=== PATIENT | female | born 1965 | race Caucasian/White ===

== ENCOUNTER 2016-06-21 14:52 | Emergency (ER) | payer BC ==
[2016-06-21] MEDS ORDERED: HYDROcodone/APAP 5-325MG 1 EACH TAB PO STA (15:51)
--- NOTE | 2016-06-21 15:53 | ED ---
General Adult HPI - General Chief complaint: Head Injury Stated complaint: head injury Time Seen by Provider: 06/21/16 15:13 Source: EMS, RN notes reviewed, old records reviewed Mode of arrival: EMS Limitations: no limitations - History of Present Illness Initial comments: This is a 50-year-old female the ER for evaluation headache headache head pain. Head trauma. Patient is on blood thinners, has no specific medical history, think severe concussion, mild headache with nausea. Vision did hit her head on a door and the car of [employer], no evidence of passing out, library became nervous for can touch concussion and called EMS. Prior L2 emergency room patient has no nausea vomiting. Is complaining of headache. - Related Data Home Medications Medication Instructions Recorded Confirmed FLUoxetine HCL [Fluoxetine HCl] 20 mg PO DAILY 10/07/15 06/21/16 Gabapentin [Gabapentin] 300 mg PO BID 10/07/15 06/21/16 Levothyroxine Sodium [Synthroid] 137 mg PO DAILY 10/07/15 06/21/16 Ibuprofen [Motrin] 800 mg PO TID PRN 06/21/16 06/21/16 Allergies Allergy/AdvReac Type Severity Reaction Status Date / Time sulfamethoxazole Allergy Rash/Hives Verified 06/21/16 15:40 [From Bactrim] trimethoprim [From Bactrim] Allergy Rash/Hives Verified 06/21/16 15:40 SULFURIC ACID Allergy Rash/Hives Uncoded 06/21/16 15:05 Review of Systems ROS Statement: Those systems with pertinent positive or pertinent negative responses have been documented in the HPI. ROS Other: All systems not noted in ROS Statement are negative. Past Medical History Past Medical History: Eye Disorder, Thyroid Disorder Additional Past Medical History / Comment(s): BILAT CATARACTS. SEASONAL ALLERGIES History of Any Multi-Drug Resistant Organisms: None Reported Past Surgical History: Section Past Anesthesia/Blood Transfusion Reactions: No Reported Reaction Past Psychological History: Anxiety, Depression Smoking Status: Never smoker Past Alcohol Use History: Occasional Past Drug Use History: None Reported - Past Family History Mother Family Medical History: Cancer General Exam Limitations: no limitations General appearance: alert, in no apparent distress Head exam: Present: normocephalic, normal inspection. Absent: atraumatic ( Hematoma left fourth) Eye exam: Present: normal appearance, PERRL, EOMI. Absent: scleral icterus, conjunctival injection, periorbital swelling ENT exam: Present: normal exam, mucous membranes moist Neck exam: Present: normal inspection. Absent: tenderness, meningismus, lymphadenopathy Respiratory exam: Present: normal lung sounds bilaterally. Absent: respiratory distress, wheezes, rales, rhonchi, stridor Cardiovascular Exam: Present: regular rate, normal rhythm, normal heart sounds. Absent: systolic murmur, diastolic murmur, rubs, gallop, clicks GI/Abdominal exam: Present: soft, normal bowel sounds. Absent: distended, tenderness, guarding, rebound, rigid Extremities exam: Present: normal inspection, full ROM, normal capillary refill. Absent: tenderness, pedal edema, joint swelling, calf tenderness Back exam: Present: normal inspection Neurological exam: Present: alert, oriented X3, CN II-XII intact Psychiatric exam: Present: normal affect, normal mood Skin exam: Present: warm, dry, intact, normal color. Absent: rash Course Vital Signs 06/21/16 14:59 Temperature 98.5 F Pulse Rate 68 Respiratory 18 Rate Blood Pressure 163/89 O2 Sat by Pulse 99 Oximetry - Reevaluation(s) Reevaluation #1: 06/21/16 15:52 Patient's symptoms are improved Medical Decision Making - Medical Decision Making 50. The ER with close head injury, scalp hematoma. Patient's pain is improved at this time can be discharged home to take Motrin and Tylenol for pain - Radiology Data Radiology results: report reviewed (CT brain negative for acute disease), image reviewed Disposition Clinical Impression: Contusion of scalp, Hematoma of scalp, Closed head injury Disposition: HOME SELF-CARE Condition: Good Instructions: Concussion (ED) Referrals: Wilbert David MD [Primary Care Provider] - 1-2 days
[2016-06-21] MEDS ORDERED: IBUPROFEN 800 MG TAB PO STA (16:00)
--- NOTE | 2016-06-21 17:01 | CT ---
EXAMINATION TYPE: CT brain wo con DATE OF EXAM: 06/21/2016 4:52 PM COMPARISON: NONE HISTORY: Left frontal injury with blurred vision. CT DLP: 1017.90 mGycm Automated exposure control for dose reduction was used. FINDINGS: There is no acute intracranial hemorrhage, mass effect, or midline shift identified. The ventricles and sulci are within normal limits in size. The globes are intact and the visualized sinuses are yaron ar. IMPRESSION: No acute intracranial hemorrhage, mass effect, or midline shift is seen.
[2016-06-21 17:11] VITALS: BP 165/73; PULSE 62; RESP 16; TEMP 97.7
== END 2016-06-21 17:30 | disposition home or self-care (01) ==
LOC: EC 14:52
DX: S00.03XA Contusion of scalp, initial encounter (principal); S09.90XA Unspecified injury of head, initial encounter; W22.8XXA Striking against or struck by other objects, initial encounter; Y92.241 Library as the place of occurrence of the external cause; Z79.899 Other long term (current) drug therapy; E07.9 Disorder of thyroid, unspecified; Z88.2 Allergy status to sulfonamides; Z88.8 Allergy status to other drugs, medicaments and biological substances; Z91.048 Other nonmedicinal substance allergy status; F41.9 Anxiety disorder, unspecified; F32.9 Major depressive disorder, single episode, unspecified
CPT/HCPCS: 70450; 99284

== ENCOUNTER → 2016-12-20 | Outpatient (CLI) | payer BC ==
--- NOTE | 2016-12-21 07:57 | MM ---
Reason for exam: clinical finding. Last mammogram was performed 2 years and 7 months ago. History: Taking hormonal contraceptives for 5 years beginning at age 43. Indicated problem(s): pain in both breasts. Physical Findings: Nurse did not find any significant physical abnormalities on exam. MG Diagnostic Mammo w CAD JUN Bilateral CC and MLO view(s) were taken. Prior study comparison: May 31, 2014, bilateral MG diagnostic mammo w CAD JUN. November 10, 2010, mammogram. There are scattered fibroglandular densities. Right upper outer quadrant focal asymmetry stable in comparison to 11/10/10 exam. These results were verbally communicated with the patient and result sheet given to the patient on 12/20/16. ASSESSMENT: Benign, BI-RAD 2 RECOMMENDATION: Routine screening mammogram of both breasts in 1 year. Manage on a clinical basis with regard to bilateral breast pain.
== END | disposition home or self-care (01) ==
LOC: RADMAMWWP 14:50
PROVIDERS: ATTEND Obstetrics & Gynecology
DX: N64.4 Mastodynia (principal)

== ENCOUNTER → 2018-05-19 | Outpatient (CLI) | payer BC ==
--- NOTE | 2018-05-19 22:53 | MR ---
EXAMINATION TYPE: MR shoulder RT wo con DATE OF EXAM: 05/19/2018 COMPARISON: NONE HISTORY: Right shoulder pain with limited range of motion for 1 year per patient. TECHNIQUE: Multiplanar, multisequence imaging of the right shoulder is performed without contrast. FINDINGS: Rotator Cuff: There is marked abnormal signal in distal supraspinatus and infraspinatus tendons. Ther e is focal tear articular surface with fluid cleft measuring 12 mm AP diameter parasagittal image for noted. A few roughly 1/4 anterior fibers of the distal supraspinatus tendon remain intact. Roughly 1 /3-1/2 posterior fibers distal infraspinatus tendon are felt intact. Subscapularis tendon is intact. Rotator cuff muscle bulk is preserved. Acromioclavicular Joint: There is mild to moderate capsular hypertrophy. There is moderate to severe narrowing. Distal acromion morphology is unremarkable. Underlying fat plane at the AC joint is efface d. Underlying impingement is suspected. Correlate clinically. Glenohumeral Joint: There is small to moderate size glenohumeral joint effusion. Moderate narrowing i s seen. No suspicious spurring is present. Labrum: The superior labrum shows increased signal and blunting consistent with degenerative tear. Biceps Tendon: The long head of biceps is in normal location within bicipital groove. Intracapsular p ortion near anchor shows thickening and possible slight intermediate signal. Bone marrow signal: Subchondral cystic change superolateral humeral head is present. Other: No additional significant abnormality is appreciated. IMPRESSION: 1. Tendinosis and significant partial tears of the distal supraspinatus and infraspinatus tendons. 2. Moderate to borderline severe AC and glenohumeral joint arthropathy. Correlate for underlying impi ngement.
== END ==
LOC: RADMRIMAIN 15:11
PROVIDERS: ATTEND Orthopaedic Surgery
DX: M19.011 Primary osteoarthritis, right shoulder (principal); M75.101 Unspecified rotator cuff tear or rupture of right shoulder, not specified as traumatic

== ENCOUNTER 2018-09-13 12:40 | Emergency (ER) | payer BC ==
[2018-09-13 12:49] VITALS: BP 141/67; PULSE 80; RESP 16; TEMP 98.8
[2018-09-13] MEDS ORDERED: DEXAMETHASONE SOD PHOSPHATE 10 MG/ML 1 ML VIAL IM STA (12:58)
--- NOTE | 2018-09-13 13:01 | ED ---
ENT HPI - General Chief complaint: ENT Stated complaint: SORE THROAT Time Seen by Provider: 09/13/18 12:50 Source: patient, RN notes reviewed Mode of arrival: ambulatory Limitations: no limitations - History of Present Illness Initial comments: 52-year-old female presents emergency Department chief complaint sore throat 3 days. Patient states is painful to swallow and she has multiple swollen lymph nodes that she's palpated. Patient states that she's had no prior surgeries on her throat including tonsils redness. Patient reports subjective fevers and chills. Patient denies nasal congestion, cough, runny nose, sinus pressure. Patient states that she is very painful to swallow at this time she has not been taking any medications. - Related Data Home Medications Medication Instructions Recorded Confirmed FLUoxetine HCL [Fluoxetine HCl] 20 mg PO DAILY 10/07/15 02/26/17 Gabapentin 300 mg PO BID 10/07/15 02/26/17 Levothyroxine Sodium [Synthroid] 137 mcg PO DAILY 10/07/15 02/26/17 Acetaminophen/Diphenhydramine 2 tab PO HS 02/21/17 02/26/17 [Tylenol PM 500-25mg] Ibuprofen [Motrin] 600 mg PO Q8HR PRN 02/21/17 02/26/17 Previous Rx's Medication Instructions Recorded Amoxicillin 500 mg PO Q8H #30 capsule 09/13/18 predniSONE 50 mg PO DAILY #3 tab 09/13/18 Allergies Allergy/AdvReac Type Severity Reaction Status Date / Time fentanyl Allergy Unknown Verified 09/13/18 12:45 sulfamethoxazole Allergy Rash/Hives Verified 09/13/18 12:45 [From Bactrim] trimethoprim [From Bactrim] Allergy Rash/Hives Verified 09/13/18 12:45 SULFURIC ACID Allergy Rash/Hives Uncoded 09/13/18 12:45 Review of Systems ROS Statement: Those systems with pertinent positive or pertinent negative responses have been documented in the HPI. ROS Other: All systems not noted in ROS Statement are negative. Past Medical History Past Medical History: Eye Disorder, Thyroid Disorder Additional Past Medical History / Comment(s): cataract lt eye. SEASONAL ALLERGIES History of Any Multi-Drug Resistant Organisms: None Reported Past Surgical History: Section Additional Past Surgical History / Comment(s): cataract rt eye with lens implant Past Anesthesia/Blood Transfusion Reactions: No Reported Reaction Past Psychological History: Anxiety, Depression Smoking Status: Never smoker - Past Family History Mother Family Medical History: Cancer General Exam Limitations: no limitations General appearance: alert, in no apparent distress Head exam: Present: atraumatic, normocephalic, normal inspection Eye exam: Present: normal appearance, PERRL, EOMI. Absent: scleral icterus, conjunctival injection, periorbital swelling ENT exam: Present: mucous membranes moist, TM's normal bilaterally. Absent: normal exam, normal oropharynx (Erythematous posterior pharynx with erythematous tonsils) Neck exam: Present: normal inspection, full ROM, lymphadenopathy. Absent: tenderness, meningismus Respiratory exam: Present: normal lung sounds bilaterally. Absent: respiratory distress, wheezes, rales, rhonchi, stridor Cardiovascular Exam: Present: regular rate, normal rhythm, normal heart sounds. Absent: systolic murmur, diastolic murmur, rubs, gallop, clicks Course Vital Signs 09/13/18 12:44 Temperature 98.8 F Pulse Rate 80 Respiratory 16 Rate Blood Pressure 141/67 O2 Sat by Pulse 97 Oximetry Medical Decision Making - Medical Decision Making 52-year-old female presented for sore throat. Patient has multiple swollen lymph nodes, erythema and swelling of her tonsils. Patient we treated for tonsillitis, suspect strep pharyngitis. Patient will be given Decadron emergency department and discharged on antibiotics. Disposition Clinical Impression: Acute tonsillitis, Pharyngitis Disposition: HOME SELF-CARE Condition: Stable Instructions (If sedation given, give patient instructions): Tonsillitis (ED) Additional Instructions: Please return to the Emergency Department if symptoms worsen or any other concerns. Prescriptions: Amoxicillin 500 mg PO Q8H #30 capsule predniSONE 50 mg PO DAILY #3 tab Is patient prescribed a controlled substance at d/c from ED?: No Referrals: Wilbert David MD [Primary Care Provider] - 1-2 days Time of Disposition: 13:01
== END 2018-09-13 13:42 | disposition home or self-care (01) ==
LOC: EC 12:40
DX: J03.90 Acute tonsillitis, unspecified (principal); E07.9 Disorder of thyroid, unspecified; F32.9 Major depressive disorder, single episode, unspecified; F41.9 Anxiety disorder, unspecified; Z88.2 Allergy status to sulfonamides; Z88.5 Allergy status to narcotic agent; Z91.048 Other nonmedicinal substance allergy status; Z79.890 Hormone replacement therapy; Z79.891 Long term (current) use of opiate analgesic; Z79.899 Other long term (current) drug therapy
CPT/HCPCS: 99282; 96372; J1100

== ENCOUNTER → 2018-10-14 | Outpatient (CLI) | payer BC ==
--- NOTE | 2018-10-16 10:10 | MM ---
Reason for exam: screening (asymptomatic). Last mammogram was performed 1 year and 10 months ago. History: Patient is postmenopausal. Benign excisional biopsy of the left breast, 2017. Took hormonal contraceptives for 5 years. Physical Findings: A clinical breast exam by your physician is recommended on an annual basis and results should be correlated with mammographic findings. MG Screening Mammo w CAD Bilateral CC and MLO view(s) were taken. Prior study comparison: December 20, 2016, bilateral MG diagnostic mammo w CAD JUN. May 31, 2014, bilateral MG diagnostic mammo w CAD JUN. There are scattered fibroglandular densities. Finding: There is a new 4 mm round mass located 7 cm from the nipple. Previous mammotome biopsy in the left breast. New finding since December 20, 2016 and May 31, 2014. ASSESSMENT: Incomplete: need additional imaging evaluation, BI-RAD 0 RECOMMENDATION: Special view mammogram of the left breast. If lesion persists on supplemental views, image directed ultrasound is recommended. [facility] will attempt to contact patient to return for supplemental views and ultrasound if indicated.
== END | disposition home or self-care (01) ==
LOC: RADMAMWWP 13:47
PROVIDERS: ATTEND Family Medicine
DX: Z12.31 Encounter for screening mammogram for malignant neoplasm of breast (principal)
CPT/HCPCS: 77067

== ENCOUNTER → 2018-10-21 | Outpatient (CLI) | payer BC ==
--- NOTE | 2018-10-21 10:34 | MM ---
Reason for exam: additional evaluation requested from abnormal screening. Last mammogram was performed less than 1 month ago. History: Patient is postmenopausal. Benign excisional biopsy of the left breast, 2017. Took hormonal contraceptives for 5 years. Physical Findings: Nurse did not find any significant physical abnormalities on exam. MG Work Up Mamm w CAD LT Spot compression CC, spot compression MLO, and ML view(s) were taken of the left breast. Prior study comparison: October 14, 2018, bilateral MG screening mammo w CAD. December 20, 2016, bilateral MG diagnostic mammo w CAD JUN. There are scattered fibroglandular densities. Finding: There is a 5 mm oval mass in the upper quadrant, central position of the left breast. Previous mammotome biopsy in the left breast. These results were verbally communicated with the patient and result sheet given to the patient on 10/21/18. ASSESSMENT: Incomplete: need additional imaging evaluation, BI-RAD 0 RECOMMENDATION: Ultrasound of the left breast.
--- NOTE | 2018-10-21 10:35 | USB ---
Reason for exam: additional evaluation requested from abnormal screening. History: Patient is postmenopausal. Benign excisional biopsy of the left breast, 2017. Took hormonal contraceptives for 5 years. US Breast Workup Limited LT Left limited breast ultrasound including focal area of concern, retroareolar and axilla demonstrates no cystic or solid lesion seen. These results were verbally communicated with the patient and result sheet given to the patient on 10/21/18. ASSESSMENT: Probably benign, BI-RAD 3 RECOMMENDATION: Follow-up diagnostic mammogram of the left breast in 6 months.
== END | disposition home or self-care (01) ==
LOC: RADMAMWWP 08:51
PROVIDERS: ATTEND Family Medicine
DX: R92.8 Other abnormal and inconclusive findings on diagnostic imaging of breast (principal); Z85.43 Personal history of malignant neoplasm of ovary
CPT/HCPCS: 77065

== ENCOUNTER → 2018-11-18 | Outpatient (CLI) | payer BC ==
[2018-11-18 09:43] LABS: Basophils % (A) 1 %; Eosinophils # (A) 0.2 k/uL (0-0.7); Eosinophils % (A) 3 %; HCT 43.8 % (34.0-46.0); Lymphocytes # (A) 1.6 k/uL (1.0-4.8); Lymphocytes % (A) 23 %; MCH 30.2 pg (25.0-35.0); MCV 94.3 fL (80.0-100.0); Mean Platelet Volume 7.9; Monocytes # (A) 0.5 k/uL (0-1.0); Monocytes % (A) 6 %; Neutrophils # (A) 4.6 k/uL (1.3-7.7); Neutrophils % (A) 65 %; Platelet Count 263 k/uL (150-450); RBC 4.64 m/uL (3.80-5.40); RDW 13.2 % (11.5-15.5); WBC 7.1 k/uL (3.8-10.6)
== END | disposition home or self-care (01) ==
LOC: LABPAT 08:59
PROVIDERS: ATTEND Orthopaedic Surgery
DX: Z01.812 Encounter for preprocedural laboratory examination (principal); M75.41 Impingement syndrome of right shoulder
CPT/HCPCS: 36415; 80051; 85025; 93005

== ENCOUNTER 2018-12-04 05:55 | Day surgery (SDC) | payer BC ==
[2018-12-01 08:32] VITALS: BMI 40.6
--- NOTE | 2018-12-03 13:39 | HP ---
HISTORY AND PHYSICAL DATE OF SURGERY: 12/04/2018 Lizy Craven is a 53-year-old patient who is seen with progressive right shoulder pain. We discussed options for treatment. She elected to proceed with arthroscopy. Consent regarding the procedure was obtained. PAST MEDICAL HISTORY: Hypothyroidism. PAST SURGICAL HISTORY: Noncontributory. DAILY MEDICATIONS: 1. Levothyroxine. 2. Ibuprofen. ALLERGIES: BACTRIM. SOCIAL HISTORY: She denies current tobacco use. PHYSICAL EXAMINATION: Physical evaluation of right shoulder: Flexion 130 degrees, abduction 120 degrees, external rotation 30 degrees with weakness and pain. Tenderness along the anterior lateral acromion rotator cuff insertion site. Impingement sign is positive at 90 degrees. Drop-arm sign is positive. Distal neurovascular exam is intact. Radiographs of the right shoulder revealed a type 2 anterior acromion, moderate acromioclavicular joint osteoarthritis and cystic changes of the greater tuberosity. A right shoulder MRI revealed rotator cuff tear, labral tear, and osteoarthritis. IMPRESSION: 1. Right shoulder impingement with rotator cuff tear. 2. Right shoulder labral tear. 3. Right shoulder osteoarthritis. 4. Hypothyroidism. PLAN: Right shoulder arthroscopy with subacromial decompression probable arthroscopic rotator cuff repair, possible David procedure and debridement. MMODL / IJN: [id number] /
[2018-12-04] MEDS ORDERED: HYDROmorphone 0.5 MG/0.5 ML SYRINGE IVP PRN (06:00)
[2018-12-04] MEDS ORDERED: ONDANSETRON 4 MG/2 ML VIAL IVP ONE (06:00)
[2018-12-04] MEDS ORDERED: LACTATED RINGERS 1,000 ML IV SCH (06:00)
[2018-12-04] MEDS ORDERED: MIDAZOLAM 2 MG/2 ML VIAL IV PRN (06:00)
[2018-12-04] MEDS ORDERED: DEXAMETHASONE SOD PHOSPHATE 10 MG/ML 1 ML VIAL IV ONE (06:00)
[2018-12-04] MEDS ORDERED: MIDAZOLAM (PF) 2 MG/2 ML VIAL IVP ONE (07:04)
[2018-12-04] MEDS ORDERED: ROPIVACAINE 5 MG/ML 30 ML VIAL ONE (07:25)
[2018-12-04] MEDS ORDERED: MIDAZOLAM 2 MG/2 ML VIAL ONE (07:25)
[2018-12-04] MEDS ORDERED: PROPOFOL 10 MG/ML 20 ML VIAL IV ONE (07:25)
[2018-12-04] MEDS ORDERED: SUCCINYLCHOLINE CHLORIDE 100 MG/5 ML SYR IV ONE (07:25)
[2018-12-04] MEDS ORDERED: HYDROmorphone (PF) 1 MG/ML ONE (07:25)
[2018-12-04] MEDS ORDERED: DEXAMETHASONE SOD PHOSPHATE 4 MG/ML 1 ML VIAL ONE (07:25)
--- NOTE | 2018-12-04 07:46 | P.ANPRN ---
Procedure Note - Anesthesia - Nerve Block Performed Right Interscalene Date of Procedure: 12/04/18 Procedure Start Time: :03 Procedure Stop Time: : Location of Patient Procedure: PreOp Indication: Acute Post-Operative Pain, Requested by physician (Manny) Sedation Type: Sedate with meaningful contact maintained Preparation: Sterile Prep Position: Supine Catheter: None Needle Types: Pajunk (22g) Technique: Ultrasound Injectate: 0.5% Ropivacaine (see comment for volume) (22cc + Decadron 4mg) Blood Aspirated: No Pain Paresthesia on Injection Noted: No Resistance on Injection: Normal Events: Uneventful and Well Tolerated
[2018-12-04 08:55] VITALS: TEMP 97.1
--- NOTE | 2018-12-04 09:01 | P.OP ---
Date of Procedure: 12/04/18 Preoperative Diagnosis: Right shoulder impingement Postoperative Diagnosis: 1. Right shoulder rotator cuff tear 2. Right shoulder impingement 3. Right shoulder acromioclavicular joint osteoarthritis 4. Right shoulder partial long head biceps tendon tear 5. Right shoulder labral tear Procedure(s) Performed: 1. Right shoulder arthroscopic rotator cuff repair 2. Right shoulder arthroscopic subacromial decompression 3. Right shoulder arthroscopic David procedure 4. Right shoulder arthroscopic biceps tenotomy 5. Right shoulder arthroscopic debridement labral tear Implants: 14.75 Arthrex swivel lock anchor Anesthesia: GETA, regional (Interscalene block) Surgeon: Duncan Bryant Broiler Supervisor #1: Cipriano Diana Estimated Blood Loss (ml): 10 Pathology: none sent Condition: stable Disposition: PACU Indications for Procedure: 53-year-old patient seen with progressive right shoulder pain. After treatment options were discussed, she elected to proceed with arthroscopy. Operative Findings: See description of procedure Description of Procedure: Patient underwent an interscalene block by department of anesthesia. The patient was then taken to the operative suite. The patient underwent a general anesthetic by the department of anesthesia. The patient was placed into a lateral position and secured. There was appropriate padding of the bony prominence. Right shoulder was then prepped and draped in normal sterile orthopedic fashion. We placed the extremity in 10 pounds of longitudinal traction. A posterior incision was now made for a posterior working portal site. The trocar and cannula were inserted into the glenohumeral joint. Arthroscopy was initiated. Spinal needle was now inserted anteriorly, to ascertain the anterior working portal site. An incision was now made in that area, a trocar was inserted followed by a probe. There was superficial tearing of the anterior and superior labrum. There was partial tearing and hyperemia long head biceps tendon. There was a rotator cuff tear visualized from glenohumeral side. I performed an arthroscopic biceps tenotomy. I debrided the superficial labral tears down to stable tissue. There was grade 1 chondromalacia changes of the glenohumeral joint with no osteochondral tears present. The residual labrum was stable. Instruments were now removed from the glenohumeral joint. Utilizing the posterior working portal site, the trocar and cannula were inserted into the subacromial space. Arthroscopy initiated. I made an incision 2 fingerbreadths lateral to the acromion. I introduced my trocar followed by my ArthroCare ablator. I now began ablating thick subacromial bursal tissue, which exposed the undersurface of the anterior acromion. There was diminished subacromial space. There was a very prominent anterior acromion. A motorized bur was introduced and a subacromial decompression was performed. I also excised some osteophytes off the inferior aspect of the distal clavicle. The AC joint was visualized and noted to be fairly arthritic. The motorized bur was introduced in the anterior portal site and a David procedure was performed without difficulty, decompressing the AC joint nicely. I turned my attention to the rotator cuff. There was a 1 cm rotator cuff tear. I debrided the margins getting down to stable tendon tissue. The defect now measured 1.5 cm. It was f reely mobile over the footprint. I abraded the footprint with a motorized bur. I now with the assistance of Ted GARCIA passed 2 everted mattress sutures through good bites of rotator cuff tendon. We punched a hole in the footprint area for insertion of an anchor. All suture limbs were now passed through a 4.75 Arthrex swivel lock anchor. The eyelet was introduced into the pre-punch hole and held in position while Ted GARCIA tension the sutures appropriately and introduced our anchor. The anchor had good purchase. All residual suture limbs were now clipped. We had good compression of the tendon along the entire footprint. I injected 1 mL Renyte intra-articular. Instruments now removed from the portal sites. All portal sites were approximated with nylon suture. Sterile dressings were applied followed by a shoulder immobilizer. Cipriano GARCIA assisted in this complex case. The patient was awakened, transferred to a bed, and taken to recovery in stable condition.
[2018-12-04 09:04] VITALS: RESP 16
[2018-12-04 10:32] VITALS: BP 99/56; PULSE 56
== END 2018-12-04 10:52 | disposition home or self-care (01) ==
LOC: OR 05:55
PROVIDERS: ATTEND Orthopaedic Surgery
DX: M75.101 Unspecified rotator cuff tear or rupture of right shoulder, not specified as traumatic (principal); M75.41 Impingement syndrome of right shoulder; M19.011 Primary osteoarthritis, right shoulder; S43.431A Superior glenoid labrum lesion of right shoulder, initial encounter; S46.111A Strain of muscle, fascia and tendon of long head of biceps, right arm, initial encounter; X58.XXXA Exposure to other specified factors, initial encounter; M94.211 Chondromalacia, right shoulder; M25.711 Osteophyte, right shoulder; E03.9 Hypothyroidism, unspecified; Z79.1 Long term (current) use of non-steroidal anti-inflammatories (NSAID); Z79.890 Hormone replacement therapy; Z79.899 Other long term (current) drug therapy; Z88.2 Allergy status to sulfonamides; Z88.5 Allergy status to narcotic agent; Z91.048 Other nonmedicinal substance allergy status
CPT/HCPCS: 64415; 29826; 29827; 29824; C1713; C1765; J2250 ×2; J1100 ×2; J0690; J2405; J1170; J2795; J0330; J2704

== ENCOUNTER → 2022-02-26 | Outpatient (CLI) | payer BC ==
--- NOTE | 2022-02-26 13:22 | MM ---
Reason for Exam: Additional evaluation requested from prior study. Last mammogram was performed 3 year(s) and 5 month(s) ago. Patient History: Menarche at age 11. Postmenopausal. Patient used Hormonal Contraceptives for 5 years. 2017, Benign Excisional Biopsy on the left side. Risk Values: Lynn 5 year model risk: 1.2%. NCI Lifetime model risk: 7.5%. Prior Study Comparison: 07/18/2004 Left Diagnostic Ultrasound, [facility]. 11/10/2010 Screening Mammogram, Unknown. 05/31/2014 Bilateral Diagnostic Mammogram, [facility]. 12/20/2016 Bilateral Diagnostic Mammogram, [facility]. 10/14/2018 Bilateral Screening Mammogram, [facility]. 10/21/2018 Left Diagnostic Mammogram, [facility]. 10/21/2018 Left Diagnostic Ultrasound, [facility]. Tissue Density: There are scattered fibroglandular densities. Findings: Analyzed By CAD. No suspicious cluster microcalcifications within either breast. Biopsy clip redemonstrated in the left breast. Stable chronic nodularity in the left breast. No significant change from prior examination. Overall Assessment: Benign, BI-RAD 2 Management: Screening Mammogram of both breasts in 1 year. A clinical breast exam by your physician is recommended on an annual basis and results should be correlated with mammographic findings. This exam should not preclude additional follow-up of suspicious palpable abnormalities. Results were given to the patient verbally at the time of exam. Electronically signed and approved by: Luis Enrique Wilson D.O.
== END | disposition home or self-care (01) ==
LOC: RADMAMWWP 12:43
PROVIDERS: ATTEND Family Medicine
DX: R92.8 Other abnormal and inconclusive findings on diagnostic imaging of breast (principal); Z78.0 Asymptomatic menopausal state; Z98.890 Other specified postprocedural states
CPT/HCPCS: 77062; 77066

== ENCOUNTER → 2023-09-23 | Outpatient (CLI) | payer BC ==
--- NOTE | 2023-09-23 20:08 | US ---
EXAMINATION TYPE: US gallbladder DATE OF EXAM: 09/23/2023 COMPARISON: US abdomen 11/19/2012 CLINICAL INDICATION: Female, 57 years old with history of R10.11 RUQ PAIN; RUQ pain TECHNIQUE: Multiple sonographic images of the right upper quadrant are obtained. FINDINGS: EXAM MEASUREMENTS: Liver Length: 14.3 cm Gallbladder Wall: 0.2 cm CBD: 0.4 cm Right Kidney: 9.6 x 4.5 x 4.6 cm WOODEN [employer]AT BUILDER NOTES: Pancreas: Obscured by bowel gas Liver: Visualized mostly intercostally- visualized portions appeared wnl Gallbladder: wnl Evidence for sonographic Tripp's sign: No CBD: wnl Right Kidney: No evidence of hydro, lower pole gassed out The pancreas is obscured by overlying bowel gas. The visualized portions of the liver within normal l imits without focal lesion identified. Gallbladder is unremarkable without evidence of stones, wall t hickening, or surrounding fluid. Negative sonographic Tripp's sign. Common bile duct is within debbie l limits. Visualized right kidney demonstrates no evidence of hydronephrosis or nephrolithiasis. No v isualized solid mass however the lower pole is obscured by overlying bowel gas. IMPRESSION: No ultrasound evidence for an acute process.
== END | disposition home or self-care (01) ==
LOC: RADUSWWP 09:10
PROVIDERS: ATTEND Family Medicine
DX: R10.11 Right upper quadrant pain (principal)
CPT/HCPCS: 76705

== ENCOUNTER → 2024-08-04 | Outpatient (CLI) | payer BC ==
--- NOTE | 2024-08-04 13:46 | MM ---
Reason for Exam: Screening (asymptomatic). Last mammogram was performed 2 year(s) and 5 month(s) ago. Patient History: Menarche at age 11. Postmenopausal. Patient used Hormonal Contraceptives for 5 years. 2017, Benign Excisional Biopsy on the left side. Risk Values: Lynn 5 year model risk: 1.2%. NCI Lifetime model risk: 7.2%. Prior Study Comparison: 10/14/2018 Bilateral Screening Mammogram, [facility]. 10/21/2018 Left Diagnostic Mammogram, [facility]. 02/26/2022 Bilateral MG 3D diag mammo w/cad JUN, [facility]. Tissue Density: There are scattered areas of fibroglandular density. Findings: Analyzed By CAD. Mammotome biopsy clip in the left breast is redemonstrated. There is increasing number of grouped indistinct calcifications left breast. Overall Assessment: Incomplete: need additional imaging evaluation, BI-RAD 0 Management: Special View Mammogram of the left breast. Return for additional spot magnification and 3-D true lateral views left breast. Patient should continue monthly self-breast exams. A clinical breast exam by your physician is recommended on an annual basis. This exam should not preclude additional follow-up of suspicious palpable abnormalities. Note on Lynn scores and lifetime risk: 1. A Lynn score greater than 3% is considered moderate risk. If this is the case, consider specialist referral to assess eligibility for a risk reducing agent. 2. If overall lifetime risk for the development of breast cancer is 20% or higher, the patient may qualify for future screening with alternating mammogram and breast MRI. [facility], , 08/04/2024 1:32 PM. Electronically signed and approved by: Mike Ku M.D.
== END | disposition home or self-care (01) ==
LOC: RADMAMWWP 13:08
PROVIDERS: ATTEND Obstetrics & Gynecology
DX: Z12.31 Encounter for screening mammogram for malignant neoplasm of breast (principal); R92.323 Mammographic fibroglandular density, bilateral breasts; R92.1 Mammographic calcification found on diagnostic imaging of breast; Z78.0 Asymptomatic menopausal state; Z92.0 Personal history of contraception
CPT/HCPCS: 77067

== ENCOUNTER → 2024-08-12 | Outpatient (CLI) | payer BC ==
--- NOTE | 2024-08-12 09:09 | MM ---
Reason for Exam: Additional evaluation requested from abnormal screening. Last screening mammogram was performed less than 1 month ago. Patient History: Menarche at age 11. Postmenopausal. Patient used Hormonal Contraceptives for 5 years. 2017, Benign Excisional Biopsy on the left side. Risk Values: Lynn 5 year model risk: 1.2%. NCI Lifetime model risk: 7.2%. Prior Study Comparison: 10/21/2018 Left Diagnostic Mammogram, [facility]. 02/26/2022 Bilateral MG 3D diag mammo w/cad JUN, [facility]. 08/04/2024 Bilateral MG screening mammo w CAD, [facility]. Tissue Density: Left: There are scattered areas of fibroglandular density. Findings: Analyzed By CAD. Vascular calcification confirmed upper outer left breast. No suspicious microcalcifications noted. Overall Assessment: Benign, BI-RAD 2 Management: Screening Mammogram of both breasts in 1 year. . Results were given to the patient verbally at the time of exam. Patient should continue monthly self-breast exams. A clinical breast exam by your physician is recommended on an annual basis. This exam should not preclude additional follow-up of suspicious palpable abnormalities. Note on Lynn scores and lifetime risk: 1. A Lynn score greater than 3% is considered moderate risk. If this is the case, consider specialist referral to assess eligibility for a risk reducing agent. 2. If overall lifetime risk for the development of breast cancer is 20% or higher, the patient may qualify for future screening with alternating mammogram and breast MRI. [facility], , 08/12/2024 9:06 AM. Electronically signed and approved by: Jeff Schwarz M.D. [facility]
== END | disposition home or self-care (01) ==
LOC: RADMAMWWP 08:33
PROVIDERS: ATTEND Obstetrics & Gynecology
DX: R92.8 Other abnormal and inconclusive findings on diagnostic imaging of breast (principal); R92.323 Mammographic fibroglandular density, bilateral breasts; Z78.0 Asymptomatic menopausal state; Z92.0 Personal history of contraception
CPT/HCPCS: 77061; 77065